=== PATIENT | female | born 1975 | race Asian ===

== ENCOUNTER → 2019-10-20 09:44 | Outpatient (CLI) | payer BC, SELFPAY ==
[2019-10-07 13:32] VITALS: BMI 17.4
--- NOTE | 2019-10-20 09:44 | ECHOD_ITS ---
Reason For Study: MVP Procedure This was a 2D Doppler, Color Flow transthoracic echocardiogram. Exam performed in department. Left Ventricle Normal size and thickness. The estimated ejection fraction is 65 %. Normal diastology for age. No regional wall motion abnormalities noted. Right Ventricle Normal size and thickness. Normal systolic function. Atria Normal left atrium. Normal right atrium. Normal atrial septum. Mitral Valve The mitral valve is structurally normal. No prolapse or stenosis seen. Trivial mitral valve insufficiency. Tricuspid Valve Normal tricuspid valve. Trivial eccentric tricuspid valve insufficiency. Right ventricular systolic pressure estimated to be 19 mmHg. Aortic Valve Normal aortic valve. Trisinus/trileaflet aortic valve. Pulmonic Valve Normal pulmonic valve. Great Vessels Normal aortic root. Normal arch. Normal inferior vena cava. Inferior vena cava collapse with sniff. Pericardium/Pleural No pericardial effusion. MMode/2D Measurements & Calculations LVIDd: 4.1 cm IVSd: 0.54 cm Ao root diam: 2.4 cm LVIDs: 2.9 cm LVPWd: 0.56 cm RVDd: 2.5 cm FS: 29.7 % LAV(MOD-bp): 28.2 ml LA A4 area: 12.2 cm2 LA dimension(2D): 2.5 cm LAV(MOD-bp) Indexed: 20.8 ml/m2 LAV(MOD-sp2): 27.7 ml LAV(MOD-sp4): 28.1 ml RA A4 area: 9.6 cm2 Time Measurements MV dec time: 0.38 sec Doppler Measurements & Calculations MV E max anderson: 45.6 cm/sec Lat Peak E' Anderson: 13.3 cm/sec Med Peak E' Anderson: 10.2 cm/sec MV A max anderson: 30.5 cm/sec E/E' lat: 3.4 E/E' med: 4.5 MV E/A: 1.5 Ao V2 max: 82.7 cm/sec LV V1 max: 71.4 cm/sec TR max anderson: 183.8 cm/sec Ao max P.7 mmHg LV V1 max P.0 mmHg TR max P.5 mmHg Interpretation Summary The estimated ejection fraction is 65 %. Normal diastology for age. Trivial mitral valve insufficiency. Trivial eccentric tricuspid valve insufficiency. Right ventricular systolic pressure estimated to be 19 mmHg. There is no comparison study available. Ordering Physician: Ervin Ruiz Referring Physician: WHIT PERES FREE [facility] Performed By: Selina Condon RDCS, RVT
== END ==
PROVIDERS: Referring Provider Internal Medicine Cardiovascular Disease; Visit Provider Internal Medicine Cardiovascular Disease
DX: I34.0 Nonrheumatic mitral (valve) insufficiency (principal); I34.1 Nonrheumatic mitral (valve) prolapse
CPT/HCPCS: 93306

== ENCOUNTER → 2019-11-08 09:20 | Outpatient (CLI) | payer BC, SELFPAY ==
[2019-10-07 13:32] VITALS: BMI 17.4
--- NOTE | 2019-11-08 09:21 | STE_ITS ---
Reason For Study: Chest Pain Stress Results Protocol: Dwayne Protocol Maximum Predicted HR: 178 bpm Target HR: 151 bpm % Maximum Predicted HR: 95 % DurationHeart Rate Stage (mm:ss) (bpm) BP Comment Baseline 60 102/58No Chest Pain Dwayne Protocol Stage I 3:00 90 112/60No Chest Pain Dwayne Protocol Stage II 3:00 107 118/66No Chest Pain Dwayne Protocol Stage III 3:00 155 134/60No Chest Pain Dwayne Protocol Stage IV 1:00 169 / No Chest Pain Recovery 91 100/58No Chest Pain Stress Duration: 10:00 mm:ss Maximum Stress HR: 169 bpm METS: 13 Baseline Echocardiogram Findings The estimated ejection fraction is 65 %. Stress Echo Wall motion Data Resting WM Intermediate WM Stress WM Resting Wall Motion Wall Motion Stress No regional wall motion No regional wall motion abnormalities noted. abnormalities noted. EKG Data Normal intervals are noted. The patient exercised according to the regular Dwayne protocol for a total duration of 10:00. The maximum heart rate attained was 187 beats per minute. This was 105% of maximum predicted heart rate. The patient exercised into stage 4 of the Dwayne protocol. During stress, there were no ST or T wave changes noted to suggest ischemia. No clinical angina was noted. No arrhythmias noted. Interpretation Summary The estimated ejection fraction is 65 %. Normal, adequate, treadmill echocardiogram. Negative for ischemia by EKG and echocardiographic criteria. No anginal symptoms noted. No arrhythmias noted. Test terminated due to the attainment target heart rate. Final LVEF 75%. Patient tolerated procedure well. No complications. Ordering Physician: Ervin Ruiz Referring Physician: Brandi Delgado [facility] Performed By: Gene Lance RCS
== END ==
PROVIDERS: Referring Provider Internal Medicine Cardiovascular Disease; Visit Provider Internal Medicine Cardiovascular Disease
DX: R07.9 Chest pain, unspecified (principal); F43.9 Reaction to severe stress, unspecified
CPT/HCPCS: 93017; 93350

== ENCOUNTER 2019-12-14 20:58 | Emergency (ER) | payer BC, SELFPAY ==
[2019-10-07 13:32] VITALS: BMI 17.4
[2019-12-14 20:59] VITALS: BP 96/78; PULSE 79; RESP 18; TEMP 36.6; O2SAT 100; BMI 16.9
--- NOTE | 2019-12-14 21:02 | RAD_ITS ---
STUDY: X-RAY - RIGHT ANKLE REASON FOR EXAM: Female, 44 years old. WHILE PLAYING TENNIS STEPPED ON THE TENNIS BALL AND TWISTED/FELL ON RIGHT ANKLE. TECHNIQUE: 4 view(s) of the ankle. COMPARISON: None. FINDINGS: There is a nondisplaced horizontal fracture of the lateral malleolus, with minimal cortical step-off laterally and 2 mm distraction. Visualized tibia and fibula are otherwise intact. Normal visualized talus and calcaneus. The visualized subtalar, talonavicular, calcaneocuboid and tarsal articulations are normal. The soft tissue structures are unremarkable. RAD/Ankle min 3 Views IMPRESSION: Nondisplaced fracture of the lateral malleolus. Electronically Signed: Tracey Aparicio MD at 21:41 EDT Tel , Service support ,
--- NOTE | 2019-12-14 22:32 | ED.VISSUMM ---
- ER Visit Summary Date of Service: 12/14/19 Chief Complaint: Right ankle pain History of Present Illness: The patient is a 44 F who sees Noreen Peter. She reports that 8:00 this evening she is playing tennis stepped on a tennis ball and twisted her ankle awkwardly. She heard a pop. She is an aching pain is 9-10 walking with 3 out of 10 at rest. She denies any paresthesias distally. She denies any other injuries. Physical Examination: Vitals: Stable. Afebrile. Neck: No vertebral tenderness. Full ROM without difficulty. Cleared by NEXUS criteria. Back: No vertebral tenderness. General: A&O x 3. NAD. Cardiovascular exam: Regular rate and rhythm, no murmur, rub or gallop. Respiratory exam: Chest nontender. No crepitus. Clear to auscultation bilaterally. No wheezes or stridor. Abdominal exam: Soft, nontender, nondistended, normal bowel sounds. No pain in RUQ or LUQ specifically. No peritoneal signs. Extremity: Soft tissue swelling and moderate tenderness outpatient over the right lateral malleolus. No pain over the medial malleolus. No pain over the proximal fibula or base the fifth metatarsal. She is neuro vas intact distal to this. 2+ dorsalis pedis pulse. Test Results: Clinical Impression(s) from Imaging Studies Ankle X-Ray 12/14/19 21:02 IMPRESSION: Nondisplaced fracture of the lateral malleolus. Electronically Signed: Tracey Aparicio MD at 21:41 EDT Tel , Service support , Emergency Department Course and Treatment: Patient refused pain medications. She was placed in a short leg posterior Ortho-Glass splint. Treatment Plan: Patient be discharged with instructions use Tylenol and/or ibuprofen for pain. She is placed on crutches and nonweightbearing. Instructed to follow-up Dr. Shepherd in 1 week for another exam. Return to the emergency department for any worsening symptoms. Disposition: To home in improved and stable condition. Impression: 1. Right lateral malleolus fracture. 2. Ortho-Glass short leg splint, fabricated. This note was generated with [employer] dictation software. It may contain incorrect words, spelling, and punctuation that were not noted in review of the chart prior to signing ED Disposition - Plan for ED Patient: Disposition: Home or Assisted Living Instructions: ANKLE FRACTURE (Distal Fibula), closed Referrals: Jeff Shepherd DO [STAFF PHYSICIAN] - 1 Week
[2019-12-14 23:13] VITALS: BP 91/74; PULSE 81; RESP 16; O2SAT 98
== END 2019-12-14 23:14 | disposition home or self-care (01) ==
LOC: ED 21:45
PROVIDERS: Emergency Provider Emergency Medicine
DX: S82.64XA Nondisplaced fracture of lateral malleolus of right fibula, initial encounter for closed fracture (principal); Y93.73 Activity, racquet and hand sports
CPT/HCPCS: 29515; 73610; 99283